=== PATIENT | female | born 1950 | race Two or more races ===

== ENCOUNTER → 2016-12-30 | Outpatient (CLI) | payer MEDICARE, OTHER ==
[~2016-12-30] MED LIST: ASPI-231 PO; ATEN-60 PO; HYDR-3546 OR; METF-314 PO; VALS160T51 PO
[2016-12-30 08:53] LABS: Urine RBC None Seen /hpf (0 - 4)
[2016-12-30 08:59] LABS: Basophils # (auto) 0 uL; Basophils % (auto) 0.4 % (0.0-2.0); Eosinophils # (auto) 0.6 uL; Eosinophils % (auto) 5.8 % (0.0-7.0); Hematocrit 37.1 % (36.0-46.0); Hemoglobin 12.6 g/dL (12.2-16.2); Lymphocytes # (auto) 3.1 uL; Lymphocytes % (auto) 30.2 % (10.0-50.0); Mean Corpuscular Hgb Conc. 34.1 g/dL (32.0-36.0); Mean Platelet Volume 7.8 fL (7.4-10.4); Monocytes # (auto) 1.1 uL; Monocytes % (auto) 10.8 % (0.0-12.0); Neutrophils # (auto) 5.3 uL; Neutrophils % (auto) 52.8 % (37.0-80.0); Platelet Count (auto) 581 10^3/uL (140-450); Red Cell Distribution Width 13.3 % (11.6-16.0); White Blood Cell 10.1 10^3/uL (4.4-10.8)
[2016-12-30 09:40] LABS: Urine Bilirubin Negative (Negative); Urine Blood Negative /uL (Negative); Urine Color Yellow (Yellow); Urine Glucose Normal (Normal); Urine Ketone Negative (Negative); Urine Nitrite Negative (Negative); Urine Squamous Epithelial Cell FEW /hpf (<5); Urine Urobilinogen Normal (Negative)
[2016-12-30 13:15] LABS: BUN/Creatinine Ratio 19.7; Bilirubin, Total 0.4 mg/dL (0.2-1.0); Calcium 9.7 mg/dL (8.5-10.1); Potassium 4.6 mmol/L (3.5-5.1); Total Protein 7.2 g/dL (6.4-8.2)
== END | disposition home or self-care (01) ==
LOC: LAB 08:16
PROVIDERS: ATTEND Internal Medicine
DX: Z00.00 Encounter for general adult medical examination without abnormal findings (principal)
CPT/HCPCS: 36415; 80053; 80061; 81001; 82043; 83036; 85025

== ENCOUNTER 2017-01-06 14:42 | Emergency (ER) | payer MEDICARE, OTHER ==
[~2017-01-06] VITALS: Ht 154.9 cm; Wt 63.0 kg
[2017-01-06 15:43] VITALS: BP 123/47
[2017-01-06] MEDS ORDERED: LIDOCAINE 1% HCL (LOCAL ANESTH.) INJ 20ML MDV IN ONE (16:30)
== END 2017-01-06 16:53 | disposition home or self-care (01) ==
LOC: ER 14:58
DX: L60.0 Ingrowing nail (principal); M19.90 Unspecified osteoarthritis, unspecified site; E11.9 Type 2 diabetes mellitus without complications; K21.9 Gastro-esophageal reflux disease without esophagitis; E78.5 Hyperlipidemia, unspecified; I10 Essential (primary) hypertension; Z98.890 Other specified postprocedural states
CPT/HCPCS: 11730; 99284; J2001

== ENCOUNTER 2017-02-08 18:31 | Emergency (ER) | payer MEDICARE, OTHER ==
[~2017-02-08] VITALS: Ht 154.9 cm; Wt 61.2 kg
[2017-02-08 18:43] VITALS: BP 142/68
== END 2017-02-08 21:35 | disposition home or self-care (01) ==
LOC: ER 18:31
DX: S02.2XXA Fracture of nasal bones, initial encounter for closed fracture (principal); S60.512A Abrasion of left hand, initial encounter; S80.211A Abrasion, right knee, initial encounter; K21.9 Gastro-esophageal reflux disease without esophagitis; I10 Essential (primary) hypertension; E11.9 Type 2 diabetes mellitus without complications; M19.90 Unspecified osteoarthritis, unspecified site; E78.5 Hyperlipidemia, unspecified; W01.0XXA Fall on same level from slipping, tripping and stumbling without subsequent striking against object, initial encounter; Y93.89 Activity, other specified; Y99.8 Other external cause status; Y92.89 Other specified places as the place of occurrence of the external cause; Z88.6 Allergy status to analgesic agent; Z79.82 Long term (current) use of aspirin
CPT/HCPCS: 70160

== ENCOUNTER → 2017-02-09 | Outpatient (CLI) | payer MEDICARE, OTHER ==
[2017-02-09 09:37] LABS: Basophils # (auto) 0.1 uL; Basophils % (auto) 0.9 % (0.0-2.0); Eosinophils # (auto) 0.5 uL; Eosinophils % (auto) 5.3 % (0.0-7.0); Hematocrit 36.8 % (36.0-46.0); Hemoglobin 12.1 g/dL (12.2-16.2); Lymphocytes # (auto) 1.9 uL; Lymphocytes % (auto) 21.2 % (10.0-50.0); Mean Corpuscular Hemoglobin 32.6 pg (28.0-32.0); Mean Corpuscular Hgb Conc. 32.9 g/dL (32.0-36.0); Mean Corpuscular Volume 99.1 fL (80.0-100.0); Mean Platelet Volume 8.3 fL (7.4-10.4); Monocytes # (auto) 0.8 uL; Monocytes % (auto) 9.5 % (0.0-12.0); Neutrophils # (auto) 5.6 uL; Neutrophils % (auto) 63.1 % (37.0-80.0); Platelet Count (auto) 590 10^3/uL (140-450); Red Cell Distribution Width 13.2 % (11.6-16.0); White Blood Cell 8.9 10^3/uL (4.4-10.8)
[2017-02-09 10:10] LABS: Albumin 3.5 g/dL (3.4-5.0); BUN/Creatinine Ratio 12.3; Bilirubin, Total 0.3 mg/dL (0.2-1.0); Calcium 9.6 mg/dL (8.5-10.1); Potassium 4.1 mmol/L (3.5-5.1)
== END | disposition home or self-care (01) ==
LOC: LAB 08:20
PROVIDERS: ATTEND Internal Medicine
DX: D47.3 Essential (hemorrhagic) thrombocythemia (principal)
CPT/HCPCS: 36415; 80053; 83615; 85025

== ENCOUNTER → 2017-04-09 | Outpatient (CLI) | payer MEDICARE, OTHER ==
[~2017-04-09] MED LIST changes: -METF-314 PO; +METF-371 PO
== END | disposition home or self-care (01) ==
LOC: LAB 08:24
PROVIDERS: ATTEND Internal Medicine
DX: E11.9 Type 2 diabetes mellitus without complications (principal)
CPT/HCPCS: 36415; 83036

== ENCOUNTER → 2017-05-08 | Outpatient (CLI) | payer MEDICARE, OTHER ==
[2017-05-08 16:15] LABS: Basophils # (auto) 0 uL; Basophils % (auto) 0.4 % (0.0-2.0); CONDITION Y; Eosinophils # (auto) 0.3 uL; Hematocrit 37.5 % (36.0-46.0); Hemoglobin 12.7 g/dL (12.2-16.2); Lymphocytes # (auto) 3.4 uL; Lymphocytes % (auto) 33.5 % (10.0-50.0); Mean Corpuscular Hemoglobin 33.7 pg (28.0-32.0); Mean Corpuscular Hgb Conc. 33.8 g/dL (32.0-36.0); Mean Corpuscular Volume 99.6 fL (80.0-100.0); Mean Platelet Volume 8.8 fL (7.4-10.4); Monocytes # (auto) 0.7 uL; Monocytes % (auto) 6.5 % (0.0-12.0); Neutrophils # (auto) 5.7 uL; Neutrophils % (auto) 56.6 % (37.0-80.0); Platelet Count (auto) 485 10^3/uL (140-450); Red Cell Distribution Width 14.2 % (11.6-16.0); White Blood Cell 10.1 10^3/uL (4.4-10.8)
[2017-05-08 16:38] LABS: BUN/Creatinine Ratio 12.3; Bilirubin, Total 0.3 mg/dL (0.2-1.0); Calcium 9.7 mg/dL (8.5-10.1); Potassium 3.6 mmol/L (3.5-5.1); Total Protein 7.5 g/dL (6.4-8.2)
== END | disposition home or self-care (01) ==
LOC: LAB 15:14
PROVIDERS: ATTEND Specialist
DX: D47.3 Essential (hemorrhagic) thrombocythemia (principal); E11.9 Type 2 diabetes mellitus without complications; I10 Essential (primary) hypertension; E55.9 Vitamin D deficiency, unspecified; E78.00 Pure hypercholesterolemia, unspecified; E03.9 Hypothyroidism, unspecified; D64.9 Anemia, unspecified; R78.89 Finding of other specified substances, not normally found in blood
CPT/HCPCS: 36415; 80053; 80061; 82306; 83036; 84443; 85025

== ENCOUNTER → 2017-12-09 | Outpatient (CLI) | payer MEDICARE, OTHER ==
[~2017-12-09] MED LIST changes: +DEXL60CA3 PO; +DOXE10CA PO; +GABA300C10 PO; +HYDR-4683 PO; +METH750T3 PO; +SIMV-8 PO; +SITA50TA PO; +VALS40TA2 PO
[2017-12-09 09:39] LABS: Basophils # (auto) 0.1 uL; Eosinophils # (auto) 0.3 uL; Monocytes # (auto) 0.7 uL; Nucleated Red Blood Cells % 0.1 %
[2017-12-09 09:41] LABS: Eosinophils % (auto) 3.8 % (0.0-7.0); Hematocrit 38.7 % (36.0-46.0); Lymphocytes # (auto) 2.3 uL; Lymphocytes % (auto) 27.7 % (10.0-50.0); Mean Corpuscular Hemoglobin 32.5 pg (28.0-32.0); Mean Corpuscular Hgb Conc. 33.5 g/dL (32.0-36.0); Mean Corpuscular Volume 96.8 fL (80.0-100.0); Neutrophils # (auto) 4.8 uL; Neutrophils % (auto) 58.5 % (37.0-80.0); Platelet Count (auto) 589 10^3/uL (140-450); Red Cell Distribution Width 13.5 % (11.8-14.3); White Blood Cell 8.3 10^3/uL (4.4-10.8)
[2017-12-09 10:04] LABS: Albumin 3.4 g/dL (3.4-5.0); BUN/Creatinine Ratio 13.4; Bilirubin, Total 0.3 mg/dL (0.2-1.0); Potassium 4.3 mmol/L (3.5-5.1); Total Protein 7.1 g/dL (6.4-8.2)
== END | disposition home or self-care (01) ==
LOC: LAB 09:04
PROVIDERS: ATTEND Physician Assistant
DX: I10 Essential (primary) hypertension (principal); E78.5 Hyperlipidemia, unspecified; E11.9 Type 2 diabetes mellitus without complications; D47.3 Essential (hemorrhagic) thrombocythemia; E55.9 Vitamin D deficiency, unspecified
CPT/HCPCS: 36415; 80053; 80061; 82306; 83036; 85025

== ENCOUNTER → 2018-09-21 | Outpatient (CLI) | payer MEDICARE, OTHER ==
[~2018-09-21] MED LIST changes: -METF-371 PO; -VALS160T51 PO
[2018-09-21 14:18] LABS: Basophils # (auto) 0.1 uL; Basophils % (auto) 1.2 % (0.0-2.0); Eosinophils # (auto) 0.3 uL; Eosinophils % (auto) 3.1 % (0.0-7.0); Hematocrit 38.4 % (36.0-46.0); Lymphocytes # (auto) 4.2 uL; Lymphocytes % (auto) 40.2 % (10.0-50.0); Mean Corpuscular Hemoglobin 33.8 pg (28.0-32.0); Mean Corpuscular Hgb Conc. 33.7 g/dL (32.0-36.0); Monocytes # (auto) 0.9 uL; Neutrophils # (auto) 4.8 uL; Neutrophils % (auto) 46.5 % (37.0-80.0); Platelet Count (auto) 439 10^3/uL (140-450); Red Blood Cells 3.84 10^6/uL (4.0-5.20); Red Cell Distribution Width 13.2 % (11.8-14.3); White Blood Cell 10.4 10^3/uL (4.4-10.8)
[2018-09-21 14:29] LABS: Urine Bacteria FEW /hpf (None Seen); Urine Blood Negative /uL (Negative); Urine Specific Gravity 1.009 (1.001-1.035); Urine WBC 17 /hpf (0 - 5)
[2018-09-21 19:05] LABS: Albumin 4.2 g/dL (3.4-5.0); Calcium 9.8 mg/dL (8.5-10.1); Potassium 4.7 mmol/L (3.5-5.1)
[2018-09-21 19:09] LABS: BUN/Creatinine Ratio 16.9; Bilirubin, Total 0.3 mg/dL (0.2-1.0); Total Protein 7.2 g/dL (6.4-8.2)
== END | disposition home or self-care (01) ==
LOC: LAB 13:30
PROVIDERS: ATTEND Physician Assistant
DX: I10 Essential (primary) hypertension (principal); E78.5 Hyperlipidemia, unspecified; E55.9 Vitamin D deficiency, unspecified; E11.9 Type 2 diabetes mellitus without complications; D64.9 Anemia, unspecified; R79.89 Other specified abnormal findings of blood chemistry
CPT/HCPCS: 36415; 80053; 80061; 81001; 82306; 83036; 85025

== ENCOUNTER → 2019-05-30 | Outpatient (CLI) | payer MEDICARE, OTHER ==
[~2019-05-30] MED LIST changes: -HYDR-3546 OR; +HYDR-3547 OR; -HYDR-4683 PO; +HYDR-4833 PO
[2019-05-30 12:38] LABS: Basophils # (auto) 0.1 uL; Basophils % (auto) 0.9 % (0.0-2.0); Eosinophils # (auto) 0.4 uL; Neutrophils # (auto) 7.7 uL; Nucleated Red Blood Cells % 0.1 %
[2019-05-30 12:40] LABS: Eosinophils % (auto) 3.1 % (0.0-7.0); Hematocrit 33.1 % (36.0-46.0); Hemoglobin 11.3 g/dL (12.2-16.2); Lymphocytes # (auto) 2.6 uL; Lymphocytes % (auto) 22.2 % (10.0-50.0); Mean Corpuscular Hemoglobin 33.6 pg (28.0-32.0); Mean Corpuscular Hgb Conc. 33.9 g/dL (32.0-36.0); Mean Corpuscular Volume 99.1 fL (80.0-100.0); Monocytes # (auto) 0.8 uL; Monocytes % (auto) 6.7 % (0.0-12.0); Neutrophils % (auto) 67.1 % (37.0-80.0); Red Blood Cells 3.35 10^6/uL (4.0-5.20); Red Cell Distribution Width 12.8 % (11.8-14.3); White Blood Cell 11.5 10^3/uL (4.4-10.8)
[2019-05-30 13:11] LABS: BUN/Creatinine Ratio 20.6; Calcium 8.9 mg/dL (8.5-10.1); Potassium 3.9 mmol/L (3.5-5.1)
[2019-05-30 13:15] LABS: Bilirubin, Total 0.2 mg/dL (0.2-1.0); Total Protein 6.8 g/dL (6.4-8.2)
[2019-05-30 15:25] LABS: Platelet Count (auto) 625 10^3/uL (140-450)
== END | disposition home or self-care (01) ==
LOC: LAB 11:40
PROVIDERS: ATTEND Internal Medicine
DX: D47.3 Essential (hemorrhagic) thrombocythemia (principal)
CPT/HCPCS: 36415; 80053; 83615; 85025

== ENCOUNTER → 2019-11-28 | Outpatient (CLI) | payer MEDICARE, OTHER ==
[2019-11-28 13:35] LABS: Basophils # (auto) 0.1 uL; Basophils % (auto) 0.6 % (0.0-2.0); Eosinophils # (auto) 0.2 uL; Eosinophils % (auto) 2.3 % (0.0-7.0); Hematocrit 37.6 % (36.0-46.0); Hemoglobin 12.9 g/dL (12.2-16.2); Lymphocytes # (auto) 2.8 uL; Lymphocytes % (auto) 26.5 % (10.0-50.0); Mean Corpuscular Hemoglobin 34.3 pg (28.0-32.0); Mean Corpuscular Hgb Conc. 34.4 g/dL (32.0-36.0); Mean Corpuscular Volume 99.7 fL (80.0-100.0); Monocytes # (auto) 0.9 uL; Monocytes % (auto) 8.4 % (0.0-12.0); Neutrophils # (auto) 6.5 uL; Neutrophils % (auto) 62.2 % (37.0-80.0); Platelet Count (auto) 451 10^3/uL (140-450); Red Blood Cells 3.77 10^6/uL (4.0-5.20); Red Cell Distribution Width 13.1 % (11.8-14.3); White Blood Cell 10.4 10^3/uL (4.4-10.8)
[2019-11-28 13:55] LABS: Albumin 3.8 g/dL (3.4-5.0); Calcium 8.9 mg/dL (8.5-10.1); Potassium 4.1 mmol/L (3.5-5.1)
[2019-11-28 13:58] LABS: BUN/Creatinine Ratio 16.7; Bilirubin, Total 0.2 mg/dL (0.2-1.0); Total Protein 7.1 g/dL (6.4-8.2)
== END | disposition home or self-care (01) ==
LOC: LAB 13:12
PROVIDERS: ATTEND Internal Medicine
DX: D47.3 Essential (hemorrhagic) thrombocythemia (principal)
CPT/HCPCS: 36415; 80053; 83615; 85025

== ENCOUNTER → 2020-10-03 | Day surgery (SDC) | payer MEDICARE, OTHER ==
[2020-09-28 10:16] LABS: Basophils # (auto) 0.1 10 ^3/uL (0-0.2); Eosinophils # (auto) 0.3 10 ^3/uL (0-0.8); Hemoglobin 12.5 g/dL (12.2-16.2); Monocytes # (auto) 1.1 10 ^3/uL (0-1.3); Neutrophils # (auto) 8.2 10 ^3/uL (1.6-8.6); Red Cell Distribution Width 13.6 % (11.8-14.3)
[2020-09-28 10:19] LABS: Basophils % (auto) 0.4 % (0.0-2.0); Eosinophils % (auto) 2.3 % (0.0-7.0); Hematocrit 37.1 % (36.0-46.0); INR 0.94 (0.9-1.15); Lymphocytes # (auto) 2.2 10 ^3/uL (0.4-5.4); Lymphocytes % (auto) 18.9 % (10.0-50.0); Mean Corpuscular Hemoglobin 33.5 pg (28.0-32.0); Mean Corpuscular Hgb Conc. 33.8 g/dL (32.0-36.0); Mean Corpuscular Volume 99.3 fL (80.0-100.0); Monocytes % (auto) 9.1 % (0.0-12.0); Neutrophils % (auto) 69.3 % (37.0-80.0); Nucleated Red Blood Cells % 0.1 %; Partial Thromboplastin Time 25.7 sec (23.0-31.2); Platelet Count (auto) 469 10^3/uL (140-450); Red Blood Cells 3.74 10^6/uL (4.0-5.20); White Blood Cell 11.9 10^3/uL (4.4-10.8)
[~2020-10-03] VITALS: Ht 157.5 cm; Wt 59.0 kg
[~2020-10-03] MED LIST changes: +ALBU2TAB4 PO; +AMLO5TAB15 PO; +ASCO500T11 PO; +CELE100C82 PO; +CHOL20007 PO; +CYA100I PO; -DEXL60CA3 PO; +DEXL60CA4 PO; +DICY10CA12 PO; -DOXE10CA PO; +DULO1CAP6 PO; +FAMO-12 PO; +FLUT1AER6 IN; -GABA300C10 PO; -HYDR-3547 OR; +LATA0.0019 OP; +LIDOCAINE VISCOUS 2% 15ML UD ONE; -METH750T3 PO; +MULT-733 OR; -VALS40TA2 PO; +diphenhdrAMINE HCL 50 MG/1 ML VL ONE; +fentaNYL CITRATE 100 MCG/2 ML VL ONE
[2020-10-03] MEDS: fentaNYL CITRATE 100 MCG/2 ML VL ONE ×3 (14:26→14:33)
[2020-10-03] MEDS: MIDAZOLAM HCL 5 MG/ML-1ML VIAL ONE ×4 (14:26→14:34)
[2020-10-03 15:25] VITALS: BP 104/43
== END | disposition home or self-care (01) ==
LOC: GI 12:58
PROVIDERS: ATTEND Internal Medicine Gastroenterology
DX: K21.9 Gastro-esophageal reflux disease without esophagitis (principal); K44.9 Diaphragmatic hernia without obstruction or gangrene; K31.89 Other diseases of stomach and duodenum; I25.10 Atherosclerotic heart disease of native coronary artery without angina pectoris; Z20.828 Contact with and (suspected) exposure to other viral communicable diseases; Z98.890 Other specified postprocedural states; Z79.899 Other long term (current) drug therapy; Z88.1 Allergy status to other antibiotic agents; Z88.8 Allergy status to other drugs, medicaments and biological substances; Z90.710 Acquired absence of both cervix and uterus
CPT/HCPCS: 36415; 43239; 85025; 85610; 85730; J2250; J3010; J7030; U0003; G0500

== ENCOUNTER → 2020-10-24 | Outpatient (CLI) | payer MEDICARE, OTHER ==
[~2020-10-24] MED LIST changes: -LIDOCAINE VISCOUS 2% 15ML UD ONE; -diphenhdrAMINE HCL 50 MG/1 ML VL ONE; -fentaNYL CITRATE 100 MCG/2 ML VL ONE
== END | disposition home or self-care (01) ==
LOC: LAB 15:34
PROVIDERS: ATTEND Internal Medicine Gastroenterology
DX: K44.9 Diaphragmatic hernia without obstruction or gangrene (principal); R93.3 Abnormal findings on diagnostic imaging of other parts of digestive tract; R10.9 Unspecified abdominal pain
CPT/HCPCS: 36415; 82565; 84520

== ENCOUNTER 2020-10-26 11:09 | Inpatient (IN) | payer MEDICARE, OTHER ==
[~2020-10-26] VITALS: Ht 157.5 cm; Wt 61.6 kg
[2020-10-26 12:04] LABS: Albumin 3.9 g/dL (3.4-5.0); Anion Gap 5 (5-15); Blood Urea Nitrogen 11 mg/dL (7-18); Calcium 9.5 mg/dL (8.5-10.1); Carbon Dioxide 29 mmol/L (21-32); Chloride 104 mmol/L (98-107); Glucose 231 mg/dL (74-106); Potassium 4.4 mmol/L (3.5-5.1); Sodium 138 mmol/L (136-145)
[2020-10-26 12:09] LABS: Alanine Aminotransferase 23 U/L (13-56); Alkaline Phosphatase 118 U/L (45-117); Aspartate Aminotransferase 19 U/L (15-37); BUN/Creatinine Ratio 15.3; Bilirubin, Total 0.3 mg/dL (0.2-1.0); GFR African American 103 mL/min; GFR Non-African American 85 mL/min; Total Protein 7.5 g/dL (6.4-8.2)
[2020-10-26 12:10] LABS: Basophils # (auto) 0.1 10 ^3/uL (0-0.2); Eosinophils # (auto) 0.3 10 ^3/uL (0-0.8); Eosinophils % (auto) 2.7 % (0.0-7.0); Lymphocytes # (auto) 1.9 10 ^3/uL (0.4-5.4); Mean Corpuscular Volume 99.4 fL (80.0-100.0); Monocytes # (auto) 0.7 10 ^3/uL (0-1.3); Neutrophils # (auto) 6.5 10 ^3/uL (1.6-8.6); Red Cell Distribution Width 13.2 % (11.8-14.3)
[2020-10-26 12:13] LABS: Basophils % (auto) 0.8 % (0.0-2.0); Hematocrit 39.9 % (36.0-46.0); Hemoglobin 13.4 g/dL (12.2-16.2); Lymphocytes % (auto) 20.2 % (10.0-50.0); Mean Corpuscular Hemoglobin 33.3 pg (28.0-32.0); Mean Corpuscular Hgb Conc. 33.5 g/dL (32.0-36.0); Monocytes % (auto) 7.3 % (0.0-12.0); Nucleated Red Blood Cells % 0.1 %; Platelet Count (auto) 504 10^3/uL (140-450); Red Blood Cells 4.02 10^6/uL (4.0-5.20); White Blood Cell 9.5 10^3/uL (4.4-10.8)
[2020-10-26 15:52] LABS: Urine Bacteria FEW /hpf (None Seen); Urine Blood Negative /uL (Negative); Urine Mucus FEW (None Seen); Urine Specific Gravity 1.017 (1.001-1.035); Urine WBC 178 /hpf (0 - 5); Urine WBC Clumps PRESENT /hpf (None Seen)
[2020-10-26] MEDS ORDERED: ONDANSETRON HCL 4 MG/2 ML VIAL IV ONE (16:00)
[2020-10-26] MEDS ORDERED: MORPHINE SULFATE 4 MG/ML SYR/VIAL IV ONE (16:00)
[2020-10-26] MEDS ORDERED: cefTRIAXone 1GM/50ML D5W 50 ML IV ONE (17:00)
[2020-10-26] MEDS ORDERED: MORPHINE SULF INJ 2 MG/ML SYRINGE 1ML IV PRN ×2 (17:30→22:15)
[2020-10-26] MEDS ORDERED: NITROGLYCERIN 0.4 MG SL TAB SL PRN ×2 (17:30→22:15)
[2020-10-26] MEDS ORDERED: HYDR-531 PO (18:13)
[2020-10-26 18:50] LABS: INR 0.98 (0.9-1.15)
[2020-10-26] MEDS ORDERED: LACTULOSE 20Gm/30ML SOLN PO PRN (22:15)
[2020-10-26] MEDS ORDERED: D5W/SOD CHL 0.45% 1,000 ML IV SCH (22:15)
[2020-10-26] MEDS ORDERED: hydrALAZINE HCL 20 MG/ML VL IV PRN (22:15)
[2020-10-26] MEDS ORDERED: ALBUTEROL SULF 2.5 MG/0.5ML(0.5%) NEB SOLN NEB PRN (22:15)
[2020-10-26] MEDS ORDERED: PIPERACILLIN-TAZOB 3.375GM 100 ML IV ONE (22:15)
[2020-10-26] MEDS ORDERED: DEXTROSE (50%) 50ML SYRG IV PRN (22:15)
[2020-10-26] MEDS ORDERED: PANTOPRAZOLE 40 MG/10 ML VIAL INJ IV ONE (22:15)
[2020-10-26] MEDS: ATORVASTATIN 20 MG TAB PO SCH (22:47)
[2020-10-27] MEDS ORDERED: PIPERACILLIN-TAZOB 3.375GM 100 ML IV SCH
[2020-10-27] MEDS: MORPHINE SULF INJ 2 MG/ML SYRINGE 1ML IV PRN ×4 (01:12→22:46)
[2020-10-27] MEDS: ONDANSETRON HCL 4 MG/2 ML VIAL IV PRN ×3 (01:12→22:46)
[2020-10-27] MEDS ORDERED: IPRATROPIUM BROM 0.5 MG/2.5ML INH SOL NEB SCH (02:00)
[2020-10-27] MEDS: ACCU-CHEK COMFORT CURVE STRIP VI SCH ×4 (06:56→22:00)
[2020-10-27] MEDS: InsuLIN REG 1unit/0.01ml Soln (100units/ml) SC SCH ×4 (06:58→22:00)
[2020-10-27 07:51] LABS: Basophils # (auto) 0.1 10 ^3/uL (0-0.2); Basophils % (auto) 0.7 % (0.0-2.0); Eosinophils # (auto) 0.3 10 ^3/uL (0-0.8); Hemoglobin 12.4 g/dL (12.2-16.2); Mean Corpuscular Hgb Conc. 34.8 g/dL (32.0-36.0); Monocytes # (auto) 0.9 10 ^3/uL (0-1.3)
[2020-10-27 07:53] LABS: Hematocrit 35.7 % (36.0-46.0); Lymphocytes # (auto) 2.6 10 ^3/uL (0.4-5.4); Lymphocytes % (auto) 31.2 % (10.0-50.0); Mean Corpuscular Hemoglobin 34.4 pg (28.0-32.0); Monocytes % (auto) 11.1 % (0.0-12.0); Neutrophils # (auto) 4.5 10 ^3/uL (1.6-8.6); Nucleated Red Blood Cells % 0.1 %; Platelet Count (auto) 453 10^3/uL (140-450); Red Cell Distribution Width 13.3 % (11.8-14.3); White Blood Cell 8.5 10^3/uL (4.4-10.8)
[2020-10-27 07:59] LABS: INR 0.97 (0.9-1.15)
[2020-10-27 08:03] LABS: Albumin 3.4 g/dL (3.4-5.0); Calcium 9.1 mg/dL (8.5-10.1); Potassium 3.6 mmol/L (3.5-5.1)
[2020-10-27 08:08] LABS: BUN/Creatinine Ratio 16.9; Bilirubin, Total 0.2 mg/dL (0.2-1.0); Magnesium 1.7 mg/dL (1.6-2.6); Phosphorus 3.7 mg/dL (2.5-4.90); Total Protein 6.6 g/dL (6.4-8.2)
[2020-10-27] MEDS: PANTOPRAZOLE 40 MG/10 ML VIAL INJ IV SCH (09:18)
[2020-10-27] MEDS: ASPirin 81 mg TAB PO SCH (09:18)
[2020-10-27] MEDS: METOPROLOL TARTRATE 25 MG TAB PO SCH ×2 (09:19→22:00)
[2020-10-27] MEDS: CHOLECALCIFEROL (VITD3) 2,000 UNIT CAP PO SCH (09:19)
[2020-10-27] MEDS: ASCORBIC ACID 500 MG TAB PO SCH (09:19)
[2020-10-27] MEDS: CYANOCOBALAMIN 500 MCG TAB PO SCH (09:19)
[2020-10-27] MEDS: DULoxetine HCL 30 MG CAP PO SCH (09:19)
[2020-10-27] MEDS: D5W/SOD CHL 0.45%/KCL 20MEQ 1,000 ML IV SCH ×2 (13:32→20:50)
[2020-10-27] MEDS: LATANOPROST 0.005 % OPTH(EYE) SOL 2.5ML EACHEYE SCH (22:00)
[2020-10-27] MEDS: ATORVASTATIN 20 MG TAB PO SCH (22:00)
[2020-10-28] MEDS: D5W/SOD CHL 0.45%/KCL 20MEQ 1,000 ML IV SCH ×3 (07:53→22:18)
[2020-10-28] MEDS: InsuLIN REG 1unit/0.01ml Soln (100units/ml) SC SCH ×4 (08:09→22:32)
[2020-10-28] MEDS: ACCU-CHEK COMFORT CURVE STRIP VI SCH ×4 (08:09→22:32)
[2020-10-28] MEDS: METOPROLOL TARTRATE 25 MG TAB PO SCH ×2 (09:49→22:18)
[2020-10-28] MEDS: ASPirin 81 mg TAB PO SCH (09:55)
[2020-10-28] MEDS: DULoxetine HCL 30 MG CAP PO SCH (09:55)
[2020-10-28] MEDS: PANTOPRAZOLE 40 MG/10 ML VIAL INJ IV SCH (09:55)
[2020-10-28] MEDS: CHOLECALCIFEROL (VITD3) 2,000 UNIT CAP PO SCH (09:56)
[2020-10-28] MEDS: CYANOCOBALAMIN 500 MCG TAB PO SCH (09:56)
[2020-10-28] MEDS: ASCORBIC ACID 500 MG TAB PO SCH (09:56)
[2020-10-28] MEDS: ACETAMINOPHEN 500 MG TAB PO PRN (13:29)
[2020-10-28] MEDS: MORPHINE SULF INJ 2 MG/ML SYRINGE 1ML IV PRN (20:25)
[2020-10-28] MEDS: LATANOPROST 0.005 % OPTH(EYE) SOL 2.5ML EACHEYE SCH (22:00)
[2020-10-28] MEDS: ATORVASTATIN 20 MG TAB PO SCH (22:17)
[2020-10-29] MEDS: D5W/SOD CHL 0.45%/KCL 20MEQ 1,000 ML IV SCH ×3 (06:19→22:50)
[2020-10-29] MEDS: ACCU-CHEK COMFORT CURVE STRIP VI SCH ×4 (06:57→21:16)
[2020-10-29] MEDS: InsuLIN REG 1unit/0.01ml Soln (100units/ml) SC SCH ×4 (06:58→21:15)
[2020-10-29 07:26] LABS: Basophils # (auto) 0.1 10 ^3/uL (0-0.2); Basophils % (auto) 0.8 % (0.0-2.0); Eosinophils # (auto) 0.3 10 ^3/uL (0-0.8); Eosinophils % (auto) 4.6 % (0.0-7.0); Hematocrit 36.9 % (36.0-46.0); Hemoglobin 12.6 g/dL (12.2-16.2); Lymphocytes # (auto) 2.8 10 ^3/uL (0.4-5.4); Lymphocytes % (auto) 36.7 % (10.0-50.0); Mean Corpuscular Hemoglobin 33.6 pg (28.0-32.0); Mean Corpuscular Hgb Conc. 34.2 g/dL (32.0-36.0); Mean Corpuscular Volume 98.1 fL (80.0-100.0); Monocytes # (auto) 0.7 10 ^3/uL (0-1.3); Monocytes % (auto) 9.7 % (0.0-12.0); Neutrophils # (auto) 3.6 10 ^3/uL (1.6-8.6); Neutrophils % (auto) 48.2 % (37.0-80.0); Nucleated Red Blood Cells % 0.2 %; Platelet Count (auto) 449 10^3/uL (140-450); Red Blood Cells 3.76 10^6/uL (4.0-5.20); White Blood Cell 7.5 10^3/uL (4.4-10.8)
[2020-10-29 07:39] LABS: INR 0.99 (0.9-1.15); Partial Thromboplastin Time 26.6 sec (23.0-31.2)
[2020-10-29 07:47] LABS: Albumin 3.6 g/dL (3.4-5.0); BUN/Creatinine Ratio 14.8; Bilirubin, Total 0.4 mg/dL (0.2-1.0); Calcium 9.2 mg/dL (8.5-10.1); Magnesium 1.7 mg/dL (1.6-2.6); Phosphorus 3.6 mg/dL (2.5-4.90); Total Protein 6.9 g/dL (6.4-8.2)
[2020-10-29] MEDS: DULoxetine HCL 30 MG CAP PO SCH (11:01)
[2020-10-29] MEDS: ASPirin 81 mg TAB PO SCH (11:01)
[2020-10-29] MEDS: CYANOCOBALAMIN 500 MCG TAB PO SCH (11:01)
[2020-10-29] MEDS: ASCORBIC ACID 500 MG TAB PO SCH (11:02)
[2020-10-29] MEDS: METOPROLOL TARTRATE 25 MG TAB PO SCH ×2 (11:02→21:16)
[2020-10-29] MEDS: PANTOPRAZOLE 40 MG/10 ML VIAL INJ IV SCH (11:02)
[2020-10-29] MEDS: CHOLECALCIFEROL (VITD3) 2,000 UNIT CAP PO SCH (11:02)
[2020-10-29 12:00] VITALS: BP 129/64
[2020-10-29] MEDS ORDERED: BARIUM SULFATE 98% 340 GM PWDR ONE ×2 (14:33→14:36)
[2020-10-29] MEDS ORDERED: GASTROGRAFIN 120 ML SOL ONE ×2 (14:36→15:30)
[2020-10-29] MEDS: metroNIDAZOLE 500MG/100ML 100 ML IV SCH ×2 (16:10→21:15)
[2020-10-29 17:00] VITALS: BP 127/54
[2020-10-29] MEDS: LATANOPROST 0.005 % OPTH(EYE) SOL 2.5ML EACHEYE SCH (21:15)
[2020-10-29] MEDS: ATORVASTATIN 20 MG TAB PO SCH (21:16)
[2020-10-29] MEDS: MORPHINE SULF INJ 2 MG/ML SYRINGE 1ML IV PRN (21:17)
[2020-10-29 22:20] VITALS: BP 139/76
[2020-10-30] MEDS: MORPHINE SULF INJ 2 MG/ML SYRINGE 1ML IV PRN ×2 (02:13→22:03)
[2020-10-30 05:16] VITALS: BP 108/47
[2020-10-30] MEDS: ACCU-CHEK COMFORT CURVE STRIP VI SCH ×4 (05:52→22:01)
[2020-10-30] MEDS: metroNIDAZOLE 500MG/100ML 100 ML IV SCH ×3 (05:52→22:24)
[2020-10-30] MEDS: InsuLIN REG 1unit/0.01ml Soln (100units/ml) SC SCH ×4 (06:01→22:01)
[2020-10-30] MEDS: D5W/SOD CHL 0.45%/KCL 20MEQ 1,000 ML IV SCH ×2 (06:19→15:30)
[2020-10-30 08:00] VITALS: BP 102/55
[2020-10-30] MEDS ORDERED: OMNIPAQUE ORAL SOLN 500ml 12mg/ml PO ONE (10:46)
[2020-10-30] MEDS: CYANOCOBALAMIN 500 MCG TAB PO SCH (11:19)
[2020-10-30] MEDS: ASPirin 81 mg TAB PO SCH (11:19)
[2020-10-30] MEDS: ASCORBIC ACID 500 MG TAB PO SCH (11:19)
[2020-10-30] MEDS: DULoxetine HCL 30 MG CAP PO SCH (11:19)
[2020-10-30] MEDS: CHOLECALCIFEROL (VITD3) 2,000 UNIT CAP PO SCH (11:19)
[2020-10-30] MEDS: PANTOPRAZOLE 40 MG/10 ML VIAL INJ IV SCH (11:19)
[2020-10-30] MEDS: METOPROLOL TARTRATE 25 MG TAB PO SCH ×2 (11:20→22:02)
[2020-10-30] MEDS: cefTRIAXone 1GM/50ML D5W 50 ML IV SCH (11:33)
[2020-10-30] MEDS ORDERED: IOHEXOL 300 MG/ML 100ML BOTTLE IJ ONE (13:37)
[2020-10-30] MEDS: FAMOTIDINE (10MG/ML) 2ML VL IV SCH (15:05)
[2020-10-30 16:51] VITALS: BP 130/69
[2020-10-30] MEDS: ACETAMINOPHEN 500 MG TAB PO PRN (17:24)
[2020-10-30 22:00] VITALS: BP 148/68
[2020-10-30] MEDS: LATANOPROST 0.005 % OPTH(EYE) SOL 2.5ML EACHEYE SCH (22:02)
[2020-10-30] MEDS: ATORVASTATIN 20 MG TAB PO SCH (22:02)
[2020-10-31] MEDS: D5W/SOD CHL 0.45%/KCL 20MEQ 1,000 ML IV SCH (01:39)
[2020-10-31 05:00] VITALS: BP 123/60
[2020-10-31] MEDS: metroNIDAZOLE 500MG/100ML 100 ML IV SCH ×2 (05:58→11:59)
[2020-10-31] MEDS: ACCU-CHEK COMFORT CURVE STRIP VI SCH ×2 (05:59→11:59)
[2020-10-31] MEDS: InsuLIN REG 1unit/0.01ml Soln (100units/ml) SC SCH ×2 (06:11→12:21)
[2020-10-31 08:00] VITALS: BP 127/68
[2020-10-31] MEDS: cefTRIAXone 1GM/50ML D5W 50 ML IV SCH (09:04)
[2020-10-31] MEDS: ASPirin 81 mg TAB PO SCH (09:23)
[2020-10-31] MEDS: FAMOTIDINE (10MG/ML) 2ML VL IV SCH (09:23)
[2020-10-31] MEDS: DULoxetine HCL 30 MG CAP PO SCH (09:24)
[2020-10-31] MEDS: CHOLECALCIFEROL (VITD3) 2,000 UNIT CAP PO SCH (09:24)
[2020-10-31] MEDS: ASCORBIC ACID 500 MG TAB PO SCH (09:24)
[2020-10-31] MEDS: CYANOCOBALAMIN 500 MCG TAB PO SCH (09:24)
[2020-10-31] MEDS: ACETAMINOPHEN 500 MG TAB PO PRN (09:25)
[2020-10-31] MEDS: METOPROLOL TARTRATE 25 MG TAB PO SCH (09:27)
[2020-10-31] MEDS: ONDANSETRON HCL 4 MG/2 ML VIAL IV PRN (09:42)
== END 2020-10-31 13:40 | disposition home or self-care (01) | DRG 389 ==
LOC: ER 11:09 → TELE 11:10 → TELE-CENTR 10-29 09:15
PROVIDERS: ADMIT Hospitalist; ATTEND Family Medicine
DX: K56.609 Unspecified intestinal obstruction, unspecified as to partial versus complete obstruction (principal); N39.0 Urinary tract infection, site not specified; E11.65 Type 2 diabetes mellitus with hyperglycemia; K21.9 Gastro-esophageal reflux disease without esophagitis; K29.70 Gastritis, unspecified, without bleeding; J44.9 Chronic obstructive pulmonary disease, unspecified; M79.7 Fibromyalgia; H40.9 Unspecified glaucoma; M54.5 Low back pain; G89.29 Other chronic pain; F32.9 Major depressive disorder, single episode, unspecified; E78.5 Hyperlipidemia, unspecified; Z20.822 Contact with and (suspected) exposure to COVID-19; I11.9 Hypertensive heart disease without heart failure; Z79.82 Long term (current) use of aspirin; Z79.84 Long term (current) use of oral hypoglycemic drugs; Z79.899 Other long term (current) drug therapy; Z90.710 Acquired absence of both cervix and uterus; Z90.81 Acquired absence of spleen; Z82.49 Family history of ischemic heart disease and other diseases of the circulatory system; Z88.1 Allergy status to other antibiotic agents; Z88.8 Allergy status to other drugs, medicaments and biological substances; Z88.5 Allergy status to narcotic agent
CPT/HCPCS: 36415; 71045; 74018; 74177; 74246; 76705; 80053; 81001; 82565; 82962; 83605; 83735; 84100; 84484; 84520; 85025; 85610; 85730; 86850; 86900; 86901; 87040; 87426; 93005; 96365; 96375; 99291; G0378; J0696; J1815; J2405; J3490

== ENCOUNTER → 2020-11-29 | Outpatient (CLI) | payer MEDICARE, OTHER ==
[~2020-11-29] MED LIST changes: +AMLO-489 PO; -AMLO5TAB15 PO; -CELE100C82 PO; -HYDR-4833 PO; +HYDR-531 PO
== END | disposition home or self-care (01) ==
LOC: XY 07:27
PROVIDERS: ATTEND Emergency Medicine
DX: K83.5 Biliary cyst (principal); R10.9 Unspecified abdominal pain
CPT/HCPCS: 78226; A9537

== ENCOUNTER 2022-03-27 16:51 | Inpatient (IN) | payer MEDICARE, OTHER ==
[~2022-03-27] VITALS: Ht 157.5 cm; Wt 55.4 kg
[~2022-03-27 16:51] MED LIST changes: -ASPI-231 PO; +ASPI1TAB20 PO
[2022-03-27 18:21] LABS: Eosinophils # (auto) 0.3 10 ^3/uL (0-0.8); Lymphocytes # (auto) 3.1 10 ^3/uL (0.4-5.4); Red Cell Distribution Width 13.3 % (11.8-14.3)
[2022-03-27 18:23] LABS: Basophils # (auto) 0.2 10 ^3/uL (0-0.2); Basophils % (auto) 1.3 % (0.0-2.0); Eosinophils % (auto) 2.2 % (0.0-7.0); Hematocrit 37.2 % (36.0-46.0); Hemoglobin 12.7 g/dL (12.2-16.2); Lymphocytes % (auto) 22.3 % (10.0-50.0); Mean Corpuscular Hemoglobin 33.8 pg (28.0-32.0); Mean Corpuscular Hgb Conc. 34.3 g/dL (32.0-36.0); Mean Corpuscular Volume 98.6 fL (80.0-100.0); Monocytes # (auto) 1.1 10 ^3/uL (0-1.3); Monocytes % (auto) 7.7 % (0.0-12.0); Neutrophils # (auto) 9.3 10 ^3/uL (1.6-8.6); Neutrophils % (auto) 66.5 % (37.0-80.0); Nucleated Red Blood Cells % 0.1 %; Red Blood Cells 3.77 10^6/uL (4.0-5.20)
[2022-03-27 18:43] LABS: INR 1.02 (0.9-1.15)
[2022-03-27 18:45] LABS: Albumin 3.8 g/dL (3.4-5.0); Calcium 9.4 mg/dL (8.5-10.1); Potassium 3.9 mmol/L (3.5-5.1)
[2022-03-27 18:49] LABS: BUN/Creatinine Ratio 16.7; Bilirubin, Total 0.3 mg/dL (0.2-1.0); Total Protein 7.6 g/dL (6.4-8.2)
[2022-03-27] MEDS ORDERED: metroNIDAZOLE 500MG/100ML 100 ML IV ONE (19:00)
[2022-03-27] MEDS ORDERED: DOCUSATE SOD 100 MG CAP PO PRN (22:30)
[2022-03-27] MEDS ORDERED: hydrALAZINE HCL 20 MG/ML VL IV PRN (22:30)
[2022-03-27] MEDS ORDERED: DEXTROSE (50%) 50ML SYRG IV PRN (22:30)
[2022-03-27] MEDS ORDERED: ACETAMINOPHEN 325 MG TAB PO PRN (22:30)
[2022-03-27] MEDS ORDERED: HYDROcodone-ACET 5/325MG TAB PO PRN (22:30)
[2022-03-27] MEDS ORDERED: ONDANSETRON HCL 4 MG/2 ML VIAL IV PRN (22:30)
[2022-03-27] MEDS ORDERED: MORPHINE SULFATE INJ 2 MG/ml SYRG IV PRN (23:00)
[2022-03-27] MEDS ORDERED: MORPHINE SULFATE 4 MG/ML SYR/VIAL ONE (23:10)
[2022-03-27] MEDS: SODIUM CHLORIDE 0.9% 1,000 ML IV SCH (23:22)
[2022-03-28] MEDS ORDERED: NITROGLYCERIN 0.4 MG SL TAB SL PRN
[2022-03-28] MEDS ORDERED: MORPHINE SULFATE INJ 2 MG/ml SYRG IV PRN
[2022-03-28 02:50] VITALS: BP 121/51
[2022-03-28 05:40] LABS: Basophils # (auto) 0.1 10 ^3/uL (0-0.2); Monocytes # (auto) 1.1 10 ^3/uL (0-1.3); Nucleated Red Blood Cells % 0.1 %; Red Cell Distribution Width 13.1 % (11.8-14.3)
[2022-03-28 05:41] LABS: Basophils % (auto) 0.6 % (0.0-2.0); Eosinophils # (auto) 0.4 10 ^3/uL (0-0.8); Hematocrit 32.2 % (36.0-46.0); Hemoglobin 11.3 g/dL (12.2-16.2); Lymphocytes # (auto) 2.7 10 ^3/uL (0.4-5.4); Lymphocytes % (auto) 24.5 % (10.0-50.0); Mean Corpuscular Hemoglobin 34.3 pg (28.0-32.0); Mean Corpuscular Hgb Conc. 35.1 g/dL (32.0-36.0); Mean Corpuscular Volume 97.8 fL (80.0-100.0); Monocytes % (auto) 9.8 % (0.0-12.0); Neutrophils # (auto) 6.7 10 ^3/uL (1.6-8.6); Neutrophils % (auto) 61.1 % (37.0-80.0); Red Blood Cells 3.29 10^6/uL (4.0-5.20)
[2022-03-28] MEDS: metroNIDAZOLE 500MG/100ML 100 ML IV SCH ×2 (05:56→14:30)
[2022-03-28] MEDS: ACCU-CHEK COMFORT CURVE STRIP VI SCH ×3 (05:57→17:30)
[2022-03-28 05:58] LABS: Potassium 4.1 mmol/L (3.5-5.1)
[2022-03-28] MEDS: InsuLIN REG 1unit/0.01ml Soln (100units/ml) SC SCH ×3 (06:00→17:30)
[2022-03-28 06:10] LABS: Albumin 3.1 g/dL (3.4-5.0); Bilirubin, Total 0.3 mg/dL (0.2-1.0); Calcium 8.9 mg/dL (8.5-10.1); Total Protein 6.2 g/dL (6.4-8.2)
[2022-03-28 09:00] VITALS: BP 118/53
[2022-03-28] MEDS ORDERED: ENOXAPARIN SOD 30 MG/0.3 ML SYRINGE SC SCH (10:00)
[2022-03-28] MEDS ORDERED: ASPirin 81 mg TAB PO SCH (10:00)
[2022-03-28] MEDS ORDERED: FAMOTIDINE (10MG/ML) 2ML VL IV SCH (10:00)
[2022-03-28 12:54] VITALS: BP 27/66
[2022-03-28] MEDS ORDERED: ALBUTEROL SULF 2.5 MG/0.5ML(0.5%) NEB SOLN NEB PRN (14:00)
[2022-03-28] MEDS ORDERED: ALBUTEROL SULF HFA 90MCG INH 200DOSE IN SCH (14:00)
[2022-03-28] MEDS: SODIUM CHLORIDE 0.9% 1,000 ML IV SCH (15:10)
[2022-03-28 17:00] VITALS: BP 124/62
[2022-03-28 17:21] VITALS: BP 126/62
[2022-03-28] MEDS ORDERED: InsuLIN REG 1unit/0.01ml Soln (100units/ml) SC SCH (22:00)
== END 2022-03-28 18:41 | disposition home or self-care (01) | DRG 394 ==
LOC: ER 16:51 → TELE 23:53 → TELE-WESTW 03-28 01:42
PROVIDERS: ADMIT Nurse Practitioner Family; ATTEND Internal Medicine Pulmonary Disease
DX: K66.8 Other specified disorders of peritoneum (principal); J84.9 Interstitial pulmonary disease, unspecified; D72.829 Elevated white blood cell count, unspecified; E11.65 Type 2 diabetes mellitus with hyperglycemia; E78.5 Hyperlipidemia, unspecified; K21.9 Gastro-esophageal reflux disease without esophagitis; M19.90 Unspecified osteoarthritis, unspecified site; Z20.822 Contact with and (suspected) exposure to COVID-19; I10 Essential (primary) hypertension; Z82.49 Family history of ischemic heart disease and other diseases of the circulatory system; Z90.710 Acquired absence of both cervix and uterus; Z79.82 Long term (current) use of aspirin; Z88.1 Allergy status to other antibiotic agents; Z88.8 Allergy status to other drugs, medicaments and biological substances
CPT/HCPCS: 36415; 74176; 80053; 82962; 85025; 85610; 87040; 93005; 96365; 96375; G0378; J2405; J3490

== ENCOUNTER → 2022-10-01 | Day surgery (SDC) | payer MEDICARE, OTHER ==
[2022-09-29 14:54] LABS: Basophils # (auto) 0.1 10 ^3/uL (0-0.2); Eosinophils # (auto) 0.3 10 ^3/uL (0-0.8); Hemoglobin 12.3 g/dL (12.2-16.2); Neutrophils % (auto) 67.6 % (37.0-80.0); Nucleated Red Blood Cells % 0.1 %; Red Cell Distribution Width 13.2 % (11.8-14.3)
[2022-09-29 14:56] LABS: Basophils % (auto) 0.6 % (0.0-2.0); Eosinophils % (auto) 2.2 % (0.0-7.0); Hematocrit 36.2 % (36.0-46.0); Lymphocytes # (auto) 3.1 10 ^3/uL (0.4-5.4); Lymphocytes % (auto) 21.8 % (10.0-50.0); Mean Corpuscular Hemoglobin 33.1 pg (28.0-32.0); Mean Corpuscular Hgb Conc. 33.9 g/dL (32.0-36.0); Mean Corpuscular Volume 97.8 fL (80.0-100.0); Monocytes # (auto) 1.1 10 ^3/uL (0-1.3); Monocytes % (auto) 7.8 % (0.0-12.0); Neutrophils # (auto) 9.6 10 ^3/uL (1.6-8.6); White Blood Cell 14.2 10^3/uL (4.4-10.8)
[2022-09-29 15:10] LABS: INR 0.98 (0.9-1.15); Partial Thromboplastin Time 30.8 sec (24.6-33.4)
[2022-09-29 15:30] LABS: Albumin 3.8 g/dL (3.4-5.0); Calcium 9.4 mg/dL (8.5-10.1); Potassium 3.6 mmol/L (3.5-5.1)
[2022-09-29 15:34] LABS: BUN/Creatinine Ratio 17.8; Bilirubin, Total 0.3 mg/dL (0.2-1.0); Total Protein 7.5 g/dL (6.4-8.2)
[2022-09-29 16:25] LABS: Urine Specific Gravity 1.017 (1.001-1.035)
[2022-09-29 16:26] LABS: Urine Blood Negative /uL (Negative)
[~2022-10-01] VITALS: Ht 157.5 cm; Wt 54.4 kg
[~2022-10-01] MED LIST changes: +ACCU-CHEK COMFORT CURVE STRIP VI ONE; -ALBU2TAB4 PO; +CELE1CAP8 PO; +DexAMETHasone SOD PHOS 10MG/1ML VIAL INJ ONE; +ETOMIDATE (2MG/ML) 20ML VIAL IV ONE; -FLUT1AER6 IN; +GLYCOPYRROLATE 0.2 MG/ML 1ML VIAL ONE; +HYDROmorphone HCL 2 MG/ML VL/or syr IV PRN; +HYDROmorphone HCL 2 MG/ML VL/or syr ONE; +METOCLOPRAMIDE HCL 5MG/ml INJ 2ml VIAL IV PRN; +MIDAZOLAM HCL 2MG/2ML 2ml VIAL (1mg/ml) ONE; +MORPHINE SULFATE 4 MG/ML SYR/VIAL IV PRN; +NEOSTIGMINE 1 MG/ML INJ (10mg/10ML VIAL) ONE; +ONDANSETRON HCL 4 MG/2 ML VIAL ONE; +ROCURONIUM 10MG/ML 10ML VIAL IV ONE; +SODIUM CHLORIDE LOCK 20 ML ONE; +SUCCINYLCHOLINE CHLORIDE 20 MG/ML 10ML VIAL IV ONE; +fentaNYL CITRATE 100 MCG/2 ML VL ONE; +levoFLOXacin 500MG 100 ML IV ONE
[2022-10-01] MEDS: HYDROmorphone HCL 2 MG/ML VL/or syr IV PRN ×2 (10:07→10:21)
[2022-10-01 11:12] VITALS: BP 112/57
== END | disposition home or self-care (01) ==
LOC: SUR 06:55
PROVIDERS: ATTEND Surgery
DX: K43.2 Incisional hernia without obstruction or gangrene (principal); I10 Essential (primary) hypertension; E11.9 Type 2 diabetes mellitus without complications; J44.9 Chronic obstructive pulmonary disease, unspecified; Z79.899 Other long term (current) drug therapy; Z79.84 Long term (current) use of oral hypoglycemic drugs; Z98.890 Other specified postprocedural states; Z20.822 Contact with and (suspected) exposure to COVID-19
CPT/HCPCS: 36415; 49560; 80053; 81001; 82962; 85025; 85610; 85730; 86850; 86900; 86901; C1781; J1100; J1170; J1956; J2250; J2405; J3010; U0003; J0330

== ENCOUNTER → 2023-01-19 | Outpatient (CLI) | payer MEDICARE, OTHER ==
[~2023-01-19] MED LIST changes: -ACCU-CHEK COMFORT CURVE STRIP VI ONE; -DexAMETHasone SOD PHOS 10MG/1ML VIAL INJ ONE; -ETOMIDATE (2MG/ML) 20ML VIAL IV ONE; -GLYCOPYRROLATE 0.2 MG/ML 1ML VIAL ONE; -HYDROmorphone HCL 2 MG/ML VL/or syr IV PRN; -HYDROmorphone HCL 2 MG/ML VL/or syr ONE; -METOCLOPRAMIDE HCL 5MG/ml INJ 2ml VIAL IV PRN; -MIDAZOLAM HCL 2MG/2ML 2ml VIAL (1mg/ml) ONE; -MORPHINE SULFATE 4 MG/ML SYR/VIAL IV PRN; -NEOSTIGMINE 1 MG/ML INJ (10mg/10ML VIAL) ONE; -ONDANSETRON HCL 4 MG/2 ML VIAL ONE; -ROCURONIUM 10MG/ML 10ML VIAL IV ONE; -SODIUM CHLORIDE LOCK 20 ML ONE; -SUCCINYLCHOLINE CHLORIDE 20 MG/ML 10ML VIAL IV ONE; -fentaNYL CITRATE 100 MCG/2 ML VL ONE; -levoFLOXacin 500MG 100 ML IV ONE
[2023-01-19 14:37] LABS: Basophils # (auto) 0.1 10 ^3/uL (0-0.2); Basophils % (auto) 0.8 % (0.0-2.0); Eosinophils # (auto) 0.3 10 ^3/uL (0-0.8); Eosinophils % (auto) 2.7 % (0.0-7.0); Hematocrit 33.3 % (36.0-46.0); Hemoglobin 11.5 g/dL (12.2-16.2); Lymphocytes # (auto) 3.9 10 ^3/uL (0.4-5.4); Lymphocytes % (auto) 30.7 % (10.0-50.0); Mean Corpuscular Hemoglobin 33.5 pg (28.0-32.0); Mean Corpuscular Hgb Conc. 34.6 g/dL (32.0-36.0); Mean Corpuscular Volume 96.8 fL (80.0-100.0); Monocytes # (auto) 0.9 10 ^3/uL (0-1.3); Monocytes % (auto) 7.2 % (0.0-12.0); Neutrophils # (auto) 7.4 10 ^3/uL (1.6-8.6); Neutrophils % (auto) 58.6 % (37.0-80.0); Nucleated Red Blood Cells % 0.1 %; Red Blood Cells 3.44 10^6/uL (4.0-5.20); Red Cell Distribution Width 13.1 % (11.8-14.3); White Blood Cell 12.6 10^3/uL (4.4-10.8)
[2023-01-19 15:41] LABS: Albumin 3.6 g/dL (3.4-5.0); BUN/Creatinine Ratio 24.2 (10.0-20.0); Calcium 9.4 mg/dL (8.5-10.1); Potassium 3.9 mmol/L (3.5-5.1)
[2023-01-19 15:46] LABS: Bilirubin, Total 0.3 mg/dL (0.2-1.0); Total Protein 7.2 g/dL (6.4-8.2)
== END | disposition home or self-care (01) ==
LOC: LAB 14:12
PROVIDERS: ATTEND Nurse Practitioner Family
DX: I10 Essential (primary) hypertension (principal); E11.40 Type 2 diabetes mellitus with diabetic neuropathy, unspecified
CPT/HCPCS: 36415; 80053; 80061; 82043; 83036; 84439; 84443; 85025

== ENCOUNTER → 2023-12-10 | Outpatient (CLI) | payer MEDICARE, OTHER ==
[~2023-12-10] MED LIST changes: -AMLO-489 PO; +AMLO1TAB22 PO; -LATA0.0019 OP; +LATA0.008 OP; -SIMV-8 PO; +SIMV20TA20 PO
[2023-12-10 12:33] LABS: Basophils # (auto) 0.1 10 ^3/uL (0-0.2); Eosinophils # (auto) 0.3 10 ^3/uL (0-0.8); Eosinophils % (auto) 2.2 % (0.0-7.0); Hemoglobin 10.7 g/dL (12.2-16.2); Lymphocytes # (auto) 2.7 10 ^3/uL (0.4-5.4); Neutrophils # (auto) 7.7 10 ^3/uL (1.6-8.6)
[2023-12-10 12:34] LABS: Basophils % (auto) 0.8 % (0.0-2.0); Hematocrit 31.6 % (36.0-46.0); Lymphocytes % (auto) 22.4 % (10.0-50.0); Mean Corpuscular Hemoglobin 36.2 pg (28.0-32.0); Mean Corpuscular Volume 106.5 fL (80.0-100.0); Monocytes # (auto) 1.2 10 ^3/uL (0-1.3); Monocytes % (auto) 10.1 % (0.0-12.0); Neutrophils % (auto) 64.5 % (37.0-80.0); Nucleated Red Blood Cells % 0.2 %; Red Blood Cells 2.96 10^6/uL (4.0-5.20); Red Cell Distribution Width 13.8 % (11.8-14.3)
[2023-12-10 13:35] LABS: Creatinine, Urine 62.95 mg/dL (30.0-125.0)
[2023-12-10 13:37] LABS: Micro Albumin < 3.0 mg/L (<30.0)
[2023-12-10 13:38] LABS: Alanine Aminotransferase 21 U/L (7-40); Albumin 4.2 g/dL (3.2-4.8); Alkaline Phosphatase 94 U/L (46-116); Anion Gap 7 (5-15); Aspartate Aminotransferase 33 U/L (13-40); BUN/Creatinine Ratio 23.5 (10.0-20.0); Bilirubin, Total 0.4 mg/dL (0.2-1.0); Blood Urea Nitrogen 16 mg/dL (9-23); Calcium 9.5 mg/dL (8.5-10.1); Carbon Dioxide 28 mmol/L (20-30); Chloride 95 mmol/L (98-107); Cholesterol 100 mg/dL (< 200); Glucose 82 mg/dL (74-106); HDL Cholesterol 43 mg/dL (40-59); LDL Cholesterol 40 mg/dL (< 100); Potassium 4.1 mmol/L (3.5-5.1); Sodium 130 mmol/L (136-145); Total Protein 5.7 g/dL (5.7-8.2); Triglycerides 79 mg/dL (< 150)
== END | disposition home or self-care (01) ==
LOC: LAB 12:10
DX: E11.40 Type 2 diabetes mellitus with diabetic neuropathy, unspecified (principal); I10 Essential (primary) hypertension; E04.1 Nontoxic single thyroid nodule; E55.9 Vitamin D deficiency, unspecified
CPT/HCPCS: 36415; 80053; 80061; 82043; 82306; 82570; 83036; 84439; 84443; 85025

== ENCOUNTER 2024-04-08 19:01 | Inpatient (IN) | payer MEDICARE, OTHER ==
[~2024-04-08] VITALS: Ht 157.5 cm; Wt 48.5 kg
[~2024-04-08 19:01] MED LIST changes: +CELE1CAP29 PO; -CELE1CAP8 PO; +DICY-89 PO; -DICY10CA12 PO
[2024-04-08 20:40] LABS: Urine Bacteria FEW /hpf (None Seen); Urine Blood Negative /uL (Negative); Urine Clarity Clear (Clear); Urine Color Light-Yellow (Yellow); Urine Protein, UAD Negative (Negative); Urine Specific Gravity 1.007 (1.001-1.035); Urine Urobilinogen Normal (Negative); Urine WBC 1 /hpf (0 - 5)
[2024-04-08 21:13] LABS: Alanine Aminotransferase 20 U/L (7-40); Albumin 4.1 g/dL (3.2-4.8); Alkaline Phosphatase 91 U/L (46-116); Anion Gap 9 (5-15); Aspartate Aminotransferase 18 U/L (13-40); BUN/Creatinine Ratio 16.7 (10.0-20.0); Bilirubin, Total 0.2 mg/dL (0.2-1.0); Blood Urea Nitrogen 8 mg/dL (9-23); Calcium 9.6 mg/dL (8.5-10.1); Carbon Dioxide 24 mmol/L (20-30); Chloride 104 mmol/L (98-107); Glucose 99 mg/dL (74-106); Potassium 3.8 mmol/L (3.5-5.1); Sodium 137 mmol/L (136-145); Total Protein 6.1 g/dL (5.7-8.2)
[2024-04-08 21:19] LABS: Basophils # (auto) 0.1 10 ^3/uL (0-0.2); Basophils % (auto) 0.5 % (0.0-2.0); Eosinophils # (auto) 0.6 10 ^3/uL (0-0.8); Eosinophils % (auto) 3.5 % (0.0-7.0); Hematocrit 30.8 % (36.0-46.0); Hemoglobin 10.4 g/dL (12.2-16.2); Lymphocytes # (auto) 2.5 10 ^3/uL (0.4-5.4); Lymphocytes % (auto) 15.1 % (10.0-50.0); Mean Corpuscular Hemoglobin 35.3 pg (28.0-32.0); Mean Corpuscular Hgb Conc. 33.7 g/dL (32.0-36.0); Mean Corpuscular Volume 104.8 fL (80.0-100.0); Monocytes # (auto) 1.6 10 ^3/uL (0-1.3); Monocytes % (auto) 10.1 % (0.0-12.0); Neutrophils # (auto) 11.5 10 ^3/uL (1.6-8.6); Neutrophils % (auto) 70.8 % (37.0-80.0); Nucleated Red Blood Cells % 0.1 %; Red Blood Cells 2.94 10^6/uL (4.0-5.20); Red Cell Distribution Width 14.7 % (11.8-14.3); White Blood Cell 16.3 10^3/uL (4.4-10.8)
[2024-04-08 21:35] VITALS: PULSE 75; RESP 16; O2SAT 96
[2024-04-08] MEDS ORDERED: metroNIDAZOLE 500MG/100ML 100 ML IV ONE (21:45)
[2024-04-08] MEDS ORDERED: SODIUM CHLORIDE 0.9% 1,500 ML IV ONE (21:45)
[2024-04-08] MEDS ORDERED: cefTRIAXone 1GM/50ML D5W 50 ML IV ONE (21:45)
[2024-04-08 21:58] LABS: Partial Thromboplastin Time 31.9 SEC (24.5-34.5); Prothrombin Time 10.6 sec (9.3-11.8)
[2024-04-08] MEDS: ONDANSETRON HCL 4 MG/2 ML VIAL IV ONE (22:05)
[2024-04-08] MEDS: MORPHINE SULFATE INJ 2 MG/ml SYRG IV ONE (22:06)
[2024-04-08] MEDS: PIPERACILLIN-TAZOB 3.375GM 100 ML IV ONE (22:32)
[2024-04-08] MEDS: SODIUM CHLORIDE 0.9% 1,000 ML IV ONE (22:33)
[2024-04-08] MEDS: diphenhdrAMINE HCL 50 MG/1 ML VL IV ONE (23:02)
[2024-04-08] MEDS ORDERED: hydrALAZINE HCL 20 MG/ML VL IV PRN (23:45)
[2024-04-08] MEDS ORDERED: VANCOMYCIN PER PHARMACY 0 MG IV SCH (23:45)
[2024-04-08] MEDS ORDERED: MORPHINE SULFATE INJ 2 MG/ml SYRG IV PRN (23:45)
[2024-04-08] MEDS ORDERED: ONDANSETRON HCL 4 MG/2 ML VIAL IV PRN (23:45)
[2024-04-08] MEDS ORDERED: SODIUM CHLORIDE 0.9% 1,000 ML IV SCH (23:45)
[2024-04-08] MEDS ORDERED: ACETAMINOPHEN 325 MG TAB PO PRN (23:45)
[2024-04-08] MEDS ORDERED: DOCUSATE SOD 100 MG CAP PO PRN (23:45)
[2024-04-08] MEDS ORDERED: NITROGLYCERIN 0.4 MG SL TAB SL PRN (23:45)
[2024-04-09] VITALS (8 sets, daily range): BP systolic 119–139; BP diastolic 53–63; PULSE 70–102; RESP 17–18; TEMP 97.5–98.8; O2SAT 94–97
[2024-04-09] MEDS: VANCOMYCIN 1GM/200ML 200 ML IV ONE (00:16)
[2024-04-09] MEDS: metroNIDAZOLE 500MG/100ML 100 ML IV SCH (05:38)
[2024-04-09] MEDS: SODIUM CHLORIDE 0.9% 1,000 ML IV SCH ×2 (05:39→16:13)
[2024-04-09 10:12] LABS: Basophils # (auto) 0.1 10 ^3/uL (0-0.2); Basophils % (auto) 0.8 % (0.0-2.0); Eosinophils # (auto) 0.3 10 ^3/uL (0-0.8); Eosinophils % (auto) 2.1 % (0.0-7.0); Hematocrit 30.2 % (36.0-46.0); Hemoglobin 10.3 g/dL (12.2-16.2); Lymphocytes # (auto) 1.6 10 ^3/uL (0.4-5.4); Lymphocytes % (auto) 10.8 % (10.0-50.0); Mean Corpuscular Hemoglobin 35.8 pg (28.0-32.0); Mean Corpuscular Volume 105.3 fL (80.0-100.0); Neutrophils # (auto) 11.5 10 ^3/uL (1.6-8.6); Neutrophils % (auto) 79.3 % (37.0-80.0); Red Blood Cells 2.87 10^6/uL (4.0-5.20); Red Cell Distribution Width 14.9 % (11.8-14.3); White Blood Cell 14.5 10^3/uL (4.4-10.8)
[2024-04-09 10:28] LABS: Alanine Aminotransferase 16 U/L (7-40); Albumin 3.7 g/dL (3.2-4.8); Alkaline Phosphatase 84 U/L (46-116); Anion Gap 8 (5-15); Aspartate Aminotransferase 17 U/L (13-40); BUN/Creatinine Ratio 11.8 (10.0-20.0); Blood Urea Nitrogen 6 mg/dL (9-23); Calcium 9.4 mg/dL (8.5-10.1); Carbon Dioxide 26 mmol/L (20-30); Chloride 107 mmol/L (98-107); Glucose 90 mg/dL (74-106); Potassium 3.9 mmol/L (3.5-5.1); Sodium 141 mmol/L (136-145)
[2024-04-09 10:29] LABS: Bilirubin, Total 0.2 mg/dL (0.2-1.0); Total Protein 5.7 g/dL (5.7-8.2)
[2024-04-09] MEDS ORDERED: VANCOMYCIN 750mg/150ml 150 ML IV SCH (12:00)
[2024-04-09] MEDS: VANCOMYCIN 750mg/150ml 150 ML IV SCH (15:13)
[2024-04-09] MEDS: MELATONIN 5 MG TAB PO ONE (22:35)
[2024-04-09] MEDS: MORPHINE SULFATE INJ 2 MG/ml SYRG IV PRN (23:56)
[2024-04-10] VITALS (8 sets, daily range): BP systolic 102–132; BP diastolic 43–70; PULSE 85–111; RESP 16–18; TEMP 97.6–98; O2SAT 93–98
[2024-04-10] MEDS ORDERED: MELO15TA29 PO (00:34)
[2024-04-10] MEDS ORDERED: HYDR-4072 PO (00:34)
[2024-04-10] MEDS ORDERED: PRE5T PO (00:34)
[2024-04-10] MEDS ORDERED: FOLI-119 PO (00:34)
[2024-04-10] MEDS: HYDROcodone-ACET 5/325MG TAB PO PRN (10:30)
[2024-04-10] MEDS: ATENOLOL 25 MG TAB PO SCH (21:15)
[2024-04-11 01:00] VITALS: BP 110/43; PULSE 63; RESP 16; TEMP 98; O2SAT 97
[2024-04-11 05:00] VITALS: BP 118/51; PULSE 72; RESP 16; TEMP 98.1; O2SAT 97
[2024-04-11 06:34] LABS: Basophils # (auto) 0.2 10 ^3/uL (0-0.2); Basophils % (auto) 2.2 % (0.0-2.0)
[2024-04-11 06:38] LABS: Eosinophils # (auto) 0.7 10 ^3/uL (0-0.8); Eosinophils % (auto) 9.9 % (0.0-7.0); Hematocrit 28.4 % (36.0-46.0); Hemoglobin 9.9 g/dL (12.2-16.2); Lymphocytes % (auto) 28.2 % (10.0-50.0); Mean Corpuscular Hemoglobin 36.7 pg (28.0-32.0); Mean Corpuscular Volume 104.8 fL (80.0-100.0); Monocytes # (auto) 0.8 10 ^3/uL (0-1.3); Monocytes % (auto) 11.8 % (0.0-12.0); Neutrophils # (auto) 3.4 10 ^3/uL (1.6-8.6); Neutrophils % (auto) 47.9 % (37.0-80.0); Nucleated Red Blood Cells % 0.1 %; Red Cell Distribution Width 14.6 % (11.8-14.3); White Blood Cell 7.2 10^3/uL (4.4-10.8)
[2024-04-11 08:00] VITALS: PULSE 62; PULSE 63; RESP 18; O2SAT 98
[2024-04-11 09:07] VITALS: BP 122/55; PULSE 62; RESP 18; TEMP 97.8; O2SAT 98
[2024-04-11] MEDS ORDERED: METR-344 PO (12:59)
[2024-04-11] MEDS ORDERED: LEVO500T91 PO (12:59)
[2024-04-11] MEDS ORDERED: PANT40T PO (12:59)
[2024-04-11 13:00] VITALS: BP 130/64; PULSE 61; RESP 20; TEMP 97.8; O2SAT 96
[2024-04-11 14:52] VITALS: BP 122/55; PULSE 65; RESP 18; TEMP 97.6; O2SAT 98
[2024-04-11] MEDS: GASTROGRAFIN 120 ML SOL ONE ×2 (16:04)
[2024-04-11] MEDS: MELATONIN 5 MG TAB PO ONE (16:05)
== END 2024-04-11 15:56 | disposition home or self-care (01) | DRG 871 ==
LOC: ER 19:01 → TELE 23:47 → TELE-EAST 04-09 03:06
PROVIDERS: ADMIT Nurse Practitioner Family; ATTEND Family Medicine
DX: A41.9 Sepsis, unspecified organism (principal); K63.1 Perforation of intestine (nontraumatic); K65.0 Generalized (acute) peritonitis; R65.21 Severe sepsis with septic shock; E44.0 Moderate protein-calorie malnutrition; Z68.1 Body mass index [BMI] 19.9 or less, adult; E11.9 Type 2 diabetes mellitus without complications; E78.00 Pure hypercholesterolemia, unspecified; K21.9 Gastro-esophageal reflux disease without esophagitis; I10 Essential (primary) hypertension; Z88.1 Allergy status to other antibiotic agents; Z90.710 Acquired absence of both cervix and uterus; Z88.8 Allergy status to other drugs, medicaments and biological substances
CPT/HCPCS: 36415; 71045; 74176; 74250; 80053; 80202; 81001; 82565; 83605; 85025; 85610; 85730; 86850; 86900; 86901; 87045; 87427; 93005; 96361; 96365; 96367; 96375; G0378; J2405; J2543; J3490

== ENCOUNTER → 2024-11-30 | Outpatient (CLI) | payer MEDICARE, OTHER ==
[~2024-11-30] MED LIST changes: +FOLI-119 PO; +HYDR-4072 PO; +LEVO500T91 PO; +MELO15TA29 PO; +METR-344 PO; +PANT40T PO; +PRE5T PO
[2024-11-30 14:49] LABS: Basophils # (auto) 0.1 10 ^3/uL (0-0.2); Eosinophils # (auto) 0.2 10 ^3/uL (0-0.8); Monocytes # (auto) 0.9 10 ^3/uL (0-1.3); Nucleated Red Blood Cells % 0.1 %
[2024-11-30 14:51] LABS: Basophils % (auto) 1.2 % (0.0-2.0); Eosinophils % (auto) 2.5 % (0.0-7.0); Hematocrit 39.3 % (36.0-46.0); Lymphocytes # (auto) 2.9 10 ^3/uL (0.4-5.4); Lymphocytes % (auto) 32.4 % (10.0-50.0); Mean Corpuscular Hemoglobin 35.1 pg (28.0-32.0); Mean Corpuscular Hgb Conc. 33.2 g/dL (32.0-36.0); Mean Corpuscular Volume 105.9 fL (80.0-100.0); Monocytes % (auto) 10.4 % (0.0-12.0); Neutrophils # (auto) 4.9 10 ^3/uL (1.6-8.6); Neutrophils % (auto) 53.5 % (37.0-80.0); Platelet Count (auto) 453 10^3/uL (140-450); Red Blood Cells 3.72 10^6/uL (4.0-5.20); Red Cell Distribution Width 13.4 % (11.8-14.3); White Blood Cell 9.1 10^3/uL (4.4-10.8)
[2024-11-30 15:14] LABS: Alanine Aminotransferase 20 U/L (7-40); Alkaline Phosphatase 85 U/L (46-116); Anion Gap 8 (5-15); BUN/Creatinine Ratio 14.3 (10.0-20.0); Blood Urea Nitrogen 11 mg/dL (9-23); Calcium 10.2 mg/dL (8.7-10.4); Carbon Dioxide 27 mmol/L (20-31); Glucose 95 mg/dL (74-106); LDL Cholesterol 51 mg/dL (< 100); Potassium 4.2 mmol/L (3.5-5.1); Triglycerides 93 mg/dL (< 150)
[2024-11-30 15:15] LABS: Albumin 4.5 g/dL (3.2-4.8); Aspartate Aminotransferase 24 U/L (13-40); Cholesterol 116 mg/dL (< 200); HDL Cholesterol 55 mg/dL (40-59)
[2024-11-30 15:16] LABS: Bilirubin, Total 0.4 mg/dL (0.2-1.0); Total Protein 6.7 g/dL (5.7-8.2)
[2024-11-30 15:18] LABS: Chloride 98 mmol/L (98-107); Sodium 133 mmol/L (136-145)
== END | disposition home or self-care (01) ==
LOC: LAB 14:27
PROVIDERS: ATTEND Nurse Practitioner Family
DX: E11.22 Type 2 diabetes mellitus with diabetic chronic kidney disease (principal); N18.9 Chronic kidney disease, unspecified; J44.9 Chronic obstructive pulmonary disease, unspecified; F11.20 Opioid dependence, uncomplicated
CPT/HCPCS: 36415; 80053; 80061; 82043; 83036; 84443; 85025

== ENCOUNTER → 2024-12-21 | Outpatient (CLI) | payer MEDICARE, OTHER ==
[2024-12-21 13:30] LABS: Basophils # (auto) 0.1 10 ^3/uL (0-0.2); Eosinophils # (auto) 0.3 10 ^3/uL (0-0.8); Lymphocytes # (auto) 2.9 10 ^3/uL (0.4-5.4); Monocytes # (auto) 0.9 10 ^3/uL (0-1.3); Neutrophils # (auto) 5.6 10 ^3/uL (1.6-8.6); Nucleated Red Blood Cells % 0.1 %; Red Cell Distribution Width 13.1 % (11.8-14.3)
[2024-12-21 13:32] LABS: Basophils % (auto) 0.7 % (0.0-2.0); Hematocrit 38.7 % (36.0-46.0); Mean Corpuscular Hemoglobin 35.4 pg (28.0-32.0); Mean Corpuscular Hgb Conc. 33.5 g/dL (32.0-36.0); Mean Corpuscular Volume 105.7 fL (80.0-100.0); Monocytes % (auto) 9.2 % (0.0-12.0); Neutrophils % (auto) 57.1 % (37.0-80.0); Platelet Count (auto) 368 10^3/uL (140-450); Red Blood Cells 3.66 10^6/uL (4.0-5.20); White Blood Cell 9.8 10^3/uL (4.4-10.8)
[2024-12-21 14:38] LABS: Alanine Aminotransferase 20 U/L (7-40); Alkaline Phosphatase 103 U/L (46-116); Anion Gap 8 (5-15); BUN/Creatinine Ratio 24.4 (10.0-20.0); Blood Urea Nitrogen 19 mg/dL (9-23); Calcium 10.2 mg/dL (8.7-10.4); Carbon Dioxide 28 mmol/L (20-31); Chloride 99 mmol/L (98-107); Potassium 4.3 mmol/L (3.5-5.1); Total Protein 6.9 g/dL (5.7-8.2)
[2024-12-21 14:39] LABS: Albumin 4.6 g/dL (3.2-4.8); Aspartate Aminotransferase 22 U/L (13-40)
[2024-12-21 14:43] LABS: Bilirubin, Total 0.2 mg/dL (0.2-1.0); Glucose 112 mg/dL (74-106); Sodium 135 mmol/L (136-145)
[2024-12-21 14:44] LABS: Free T3 3.12 pg/mL (2.3-4.2); Free T4 (Free Thyroxine) 1.13 ng/dL (0.89-1.76)
[2024-12-21 14:52] LABS: T3 Total 0.93 ng/mL (0.60-1.81)
== END | disposition home or self-care (01) ==
LOC: LAB 13:15
PROVIDERS: ATTEND Student in an Organized Health Care Education/Training Program
DX: D47.3 Essential (hemorrhagic) thrombocythemia (principal); D72.829 Elevated white blood cell count, unspecified; E07.9 Disorder of thyroid, unspecified
CPT/HCPCS: 36415; 80053; 84436; 84439; 84443; 84480; 84481; 85025